=== PATIENT | male | born 1960 | race Caucasian/White ===

== ENCOUNTER 2020-04-11 04:34 | Emergency (ER) | payer SELFPAY ==
[~2020-04-11] VITALS: Ht 170.2 cm; Wt 74.8 kg
[2020-04-11 04:35] VITALS: BP 196/116
[2020-04-11] MEDS ORDERED: KETOROLAC 60 MG/2 ML VIAL. IM ONE (05:00)
[2020-04-11] MEDS ORDERED: ORPHENADRINE CITRATE 60 MG/2 ML VIAL. IM ONE (05:00)
--- NOTE | 2020-04-11 05:01 | PHYS DOC ---
Past History Past Medical History: Hypertension, Other Additional Past Medical Histor: rheumatoid arthritis Rt hip, back pain Past Surgical History: No Surgical History Smoking: Less than 1pk/day Additional Smoking Information: 1/2 pk Daily Alcohol Use: None Drug Use: None General Adult EDM: Chief Complaint: LOWER EXT PAIN HPI: HPI: Patient is a 59 year old male who presents for evaluation of low back pain and left leg pain. Patient has numbness that starts in the bottom of his foot and extends up to near his knee. Patient denies any recent trauma or fall however in the past 1/2 weeks he did do some heavy lifting with moving. Patient has been taking high-dose ibuprofen at home with minimal improvement of symptoms. Patient denies any foot drop, saddle anesthesia or loss of bowel or bladder control. Patient denies any urinary complaints. Patient has a history of hypertension and rheumatoid arthritis. Review of Systems: Review of Systems: Constitutional: Denies fever or chills Eyes: Denies change in visual acuity HENT: Denies nasal congestion or sore throat Respiratory: Denies cough or shortness of breath Cardiovascular: Denies chest pain or edema GI: Denies abdominal pain, nausea, vomiting, bloody stools or diarrhea : Denies dysuria Musculoskeletal: has back pain no joint pain Integument: Denies rash Neurologic: Denies headache, focal weakness or sensory changes Endocrine: Denies polyuria or polydipsia Lymphatic: Denies swollen glands Psychiatric: Denies depression or anxiety Heart Score: Risk Factors: Risk Factors: DM, Current or recent (<one month) smoker, HTN, HLP, family history of CAD, obesity. Risk Scores: Score 0 - 3: 2.5% MACE over next 6 weeks - Discharge Home Score 4 - 6: 20.3% MACE over next 6 weeks - Admit for Clinical Observation Score 7 - 10: 72.7% MACE over next 6 weeks - Early Invasive Strategies Physical Exam: PE: Constitutional: Well developed, well nourished, mild acute distress, non-toxic appearance. [] HENT: Normocephalic, atraumatic, bilateral external ears normal, oropharynx moist, no oral exudates, nose normal. [] Eyes: PERRL, EOMI, conjunctiva normal, no discharge. [] Neck: Normal range of motion, no tenderness, supple, no stridor. [] Cardiovascular:Heart rate regular rhythm, no murmur [] Lungs & Thorax: Bilateral breath sounds clear to auscultation [] Abdomen: Bowel sounds normal, soft, no tenderness, no masses, no pulsatile masses. [] Skin: Warm, dry, no erythema, no rash. [] Back: tender left side lower back. [] Extremities: No tenderness, no cyanosis, no clubbing, ROM intact, no edema. [] Neurologic: Alert and oriented X 3, normal motor function, diminished sensation to bottom of left foot, no focal deficits noted. [] Psychologic: Affect normal, judgement normal, mood normal. [] Current Patient Data: Vital Signs: Vital Signs Date Time Temp Pulse Resp B/P (MAP) Pulse Ox O2 Delivery O2 Flow Rate FiO2 04/11/20 04:35 97.6 82 16 196/116 (142 98 Room Air EKG: EKG: [] Radiology/Procedures: Radiology/Procedures: [address] [address] IMAGING REPORT Signed PATIENT: RESHMA SIMPSON ACCOUNT: [id number] : 1960 LOCATION: ER AGE: 59 SEX: M EXAM STATUS: REG ER ORD. PHYSICIAN: JONNY CAROLINA DO REASON: low back pain, left leg sciatica, X 1.5 WEEKS, NKI PROCEDURE: CT LUMBAR SPINE WO CONTRAST INDICATION: Reason: low back pain, left leg sciatica, X 1.5 WEEKS, NKI / Spl. Instructions: / History: COMPARISON: None. TECHNIQUE: Axial CT images obtained through the lumbar spine. One or more of the following individualized dose reduction techniques were utilized for this examination: 1. Automated exposure control; 2. Adjustment of the mA and/or kV according to patient size; 3. Use of iterative reconstruction technique. FINDINGS: Mild retrolisthesis of L1 on 2 and L2 on 3. Grade 1 anterolisthesis of L4 on 5 and L5 on S1. 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 There is some lucent foci at the L4 and L5 vertebral bodies adjacent to the endplate. Could be from subchondral cyst formation associated with degenerative changes. No evidence of acute fracture or dislocation. Calcific atherosclerosis. Exophytic low-density lesion at the upper pole the left kidney measuring up to 13 mm. There is also a suspected exophytic lesion on the right which appears lower density measuring up to approximately 15 mm. Multilevel degenerative changes throughout the lumbar spine with disc protrusions and osteophyte formation at vertebral body endplates as well as facet and ligamentum flavum hypertrophy contributing to multilevel central canal and neural foraminal stenosis. At T11-12 there is osteophyte formation at the vertebral body endplates with mass effect on the anterior aspect of the thecal sac most severe on the right. There is also facet hypertrophy contributing to [id number] left and mild right neural foraminal stenosis. At T12-L1 there is a disc osteophyte complex with mild mass effect on the anterior aspect of the thecal sac. Facet hypertrophy. [id number] left greater than right neural foraminal stenosis. At L1-2 there is a disc osteophyte complex as well as facet ligamentum flavum hypertrophy with mild trefoil narrowing of the central canal. Mass effect on the bilateral lateral recess. The disc protrusions and facet hypertrophy encroach on the bilateral neural foramina with moderate bilateral neural foraminal stenosis. At L2-3 there is disc osteophyte complex as well as facet and ligamentum flavum hypertrophy with associated moderate trefoil narrowing of the central canal. Mass effect on the lateral recess. Moderate left and ivhd-qq-[id number] right neural foraminal stenosis. At L3-4 there is a disc protrusion and osteophyte formation as well as facet and ligamentum flavum hypertrophy with moderate trefoil narrowing of the central canal and mass effect on the bilateral lateral recess. Moderate bilateral neural foraminal stenosis. At L4-5 there is a disc protrusion and osteophyte formation of vertebral body endplates with facet and ligamentum flavum hypertrophy with mild to moderate central canal stenosis and a trefoil pattern. Lateral recesses are effaced. Moderate bilateral neural foraminal stenosis. At L5-S1 there is severe facet hypertrophy with disc protrusion and osteophyte formation at the vertebral body endplates with moderate trefoil narrowing of the central canal and mass effect on the bilateral lateral recess. Bilateral severe neural foraminal stenosis IMPRESSION: * No acute fracture or dislocation. * Multilevel degenerative changes throughout the lumbar spine with disc protrusions and osteophyte formation as well as facet and ligamentum flavum hypertrophy with multilevel central canal and neural foraminal stenosis as detailed above. 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 * Severe calcific atherosclerosis. * Bilateral renal lesions. Consider obtaining a nonemergent ultrasound to further assess whether or cystic in nature or have a solid component. Electronically signed by: Slava Miramontes MD (04/11/2020 5:55 AM) [id number] Course & Med Decision Making: Course & Med Decision Making Pertinent Labs and Imaging studies reviewed. (See chart for details) 0502 patient change his mind and decided he did not want injections. Medication changed to oral Flexeril and Naprosyn Dragon Disclaimer: Dragon Disclaimer: This electronic medical record was generated, in whole or in part, using a voice recognition dictation system. 0605 significant degenerative changes and arthritic changes noted to back. There is some disc bulging. Furthermore patient has some renal cyst that will n eed close follow-up and possible ultrasound as well. Patient was made aware of all of these findings. Patient will call and see his family doctor right away. Prescription for Flexeril given. Work note for 2 days off given as well Departure Departure: Impression: Primary Impression: Left-sided low back pain with left-sided sciatica Qualified Codes: M54.42 - Lumbago with sciatica, left side Additional Impression: Renal cyst Disposition: HOME/RESIDENCE PRIOR TO ADM Condition: STABLE Referrals: PCP,SOLE (PCP) MARLIN BRIZUELA MD Patient Instructions: Back Pain, Adult, Sciatica Additional Instructions: There are multiple positive findings on your back CT scan. You will need to see your doctor right away and follow-up. You would likely need physical therapy and if symptoms worsen or progress possible back surgery. Do not forget to see your doctor about your incidental finding of renal cyst that will need an outpatient sonogram as well Scripts Cyclobenzaprine Hcl (CYCLOBENZAPRINE HCL) 10 Mg Tablet 1 TAB PO TID for muscle strain, #30 TAB Prov: JONNY CAROLINA DO 04/11/20 Justification of Admission: Justification of Admission: Justification of Admission Dx: N/A JONNY CAROLINA DO Apr 11, 2020 05:01
[2020-04-11] MEDS ORDERED: CYCLOBENZAPRINE 10 MG TABLET. PO ONE (05:15)
[2020-04-11] MEDS ORDERED: NAPROXEN 500 MG TABLET PO ONE (05:15)
--- NOTE | 2020-04-11 05:58 | RAD ---
INDICATION: Reason: low back pain, left leg sciatica, X 1.5 WEEKS, NKI / Spl. Instructions: / History: COMPARISON: None. TECHNIQUE: Axial CT images obtained through the lumbar spine. One or more of the following individualized dose reduction techniques were utilized for this examination: 1. Automated exposure control; 2. Adjustment of the mA and/or kV according to patient size; 3. Use of iterative reconstruction technique. FINDINGS: Mild retrolisthesis of L1 on 2 and L2 on 3. Grade 1 anterolisthesis of L4 on 5 and L5 on S1. 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 There is some lucent foci at the L4 and L5 vertebral bodies adjacent to the endplate. Could be from subchondral cyst formation associated with degenerative changes. No evidence of acute fracture or dislocation. Calcific atherosclerosis. Exophytic low-density lesion at the upper pole the left kidney measuring up to 13 mm. There is also a suspected exophytic lesion on the right which appears lower density measuring up to approximately 15 mm. Multilevel degenerative changes throughout the lumbar spine with disc protrusions and osteophyte formation at vertebral body endplates as well as facet and ligamentum flavum hypertrophy contributing to multilevel central canal and neural foraminal stenosis. At T11-12 there is osteophyte formation at the vertebral body endplates with mass effect on the anterior aspect of the thecal sac most severe on the right. There is also facet hypertrophy contributing to [id number] left and mild right neural foraminal stenosis. At T12-L1 there is a disc osteophyte complex with mild mass effect on the anterior aspect of the thecal sac. Facet hypertrophy. Qpje-zw-mfhjaigj left greater than right neural foraminal stenosis. At L1-2 there is a disc osteophyte complex as well as facet ligamentum flavum hypertrophy with mild trefoil narrowing of the central canal. Mass effect on the bilateral lateral recess. The disc protrusions and facet hypertrophy encroach on the bilateral neural foramina with moderate bilateral neural foraminal stenosis. At L2-3 there is disc osteophyte complex as well as facet and ligamentum flavum hypertrophy with associated moderate trefoil narrowing of the central canal. Mass effect on the lateral recess. Moderate left and yooq-xr-vpqoatra right neural foraminal stenosis. At L3-4 there is a disc protrusion and osteophyte formation as well as facet and ligamentum flavum hypertrophy with moderate trefoil narrowing of the central canal and mass effect on the bilateral lateral recess. Moderate bilateral neural foraminal stenosis. At L4-5 there is a disc protrusion and osteophyte formation of vertebral body endplates with facet and ligamentum flavum hypertrophy with mild to moderate central canal stenosis and a trefoil pattern. Lateral recesses are effaced. Moderate bilateral neural foraminal stenosis. At L5-S1 there is severe facet hypertrophy with disc protrusion and osteophyte formation at the vertebral body endplates with moderate trefoil narrowing of the central canal and mass effect on the bilateral lateral recess. Bilateral severe neural foraminal stenosis IMPRESSION: * No acute fracture or dislocation. * Multilevel degenerative changes throughout the lumbar spine with disc protrusions and osteophyte formation as well as facet and ligamentum flavum hypertrophy with multilevel central canal and neural foraminal stenosis as detailed above. 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 * Severe calcific atherosclerosis. * Bilateral renal lesions. Consider obtaining a nonemergent ultrasound to further assess whether or cystic in nature or have a solid component. Electronically signed by: Slava Miramontes MD (04/11/2020 5:55 AM) [id number]
[2020-04-11] MEDS ORDERED: CYCL-331 PO (06:11)
[2020-04-12] MEDS ORDERED: PRED20TA PO (14:36)
[2020-04-12] MEDS ORDERED: ACET-704 PO (14:36)
== END 2020-04-11 06:15 | disposition home or self-care (01) ==
LOC: ER 04:34
DX: M54.42 Lumbago with sciatica, left side (principal); N28.1 Cyst of kidney, acquired; I10 Essential (primary) hypertension; M06.9 Rheumatoid arthritis, unspecified; F17.210 Nicotine dependence, cigarettes, uncomplicated
CPT/HCPCS: 72131; 99284-25

== ENCOUNTER 2020-04-12 14:17 | Emergency (ER) | payer SELFPAY ==
[~2020-04-12] VITALS: Ht 170.2 cm; Wt 74.8 kg
[2020-04-12 14:17] VITALS: BP 144/108
[~2020-04-12 14:17] MED LIST: CYCL-331 PO
[2020-04-12] MEDS ORDERED: ACET-704 PO (14:36)
[2020-04-12] MEDS ORDERED: PRED20TA PO (14:36)
--- NOTE | 2020-04-12 14:36 | PHYS DOC ---
Past History Past Medical History: Hypertension, Other Additional Past Medical Histor: rheumatoid arthritis Rt hip, back pain Past Surgical History: No Surgical History Smoking: Less than 1pk/day Alcohol Use: None Drug Use: None General Adult EDM: Chief Complaint: BACK PAIN OR INJURY HPI: HPI: Patient is a 59-year-old male who presents to the emergency department for evaluation, he has had 2 weeks of lower back pain, radiating down his left buttock and hip, towards his left foot. He states he is having some numbness on the medial aspect of his left foot. He denies any foot drop, gait instability other than due to pain, incontinence, or saddle anesthesia. He was seen in the emergency department yesterday morning, and had a CT scan which has been reviewed. It did demonstrate degenerative disc disease. The patient states he recently moved to this area and has not been able to arrange any follow-up as of yet. Ambulation and movement worsens his pain. There are no alleviating factors to his symptoms. He filled the Flexeril that he was given yesterday without improvement in his symptoms. The patient states he has a history of hypertension, but has not been taking his blood pressure medication. Review of Systems: Review of Systems: Constitutional: Denies fever or chills HENT: Denies nasal congestion or sore throat Respiratory: Denies cough or shortness of breath Cardiovascular: Denies chest pain or edema GI: Denies abdominal pain, nausea, vomiting, bloody stools or diarrhea : Denies dysuria Musculoskeletal: Denies upper back pain or joint pain Integument: Denies rash Neurologic: Denies headache, focal weakness or sensory changes, other than as noted in the HPI involving the left foot Endocrine: Denies polyuria or polydipsia Psychiatric: Denies depression or anxiety Heart Score: Risk Factors: Risk Factors: DM, Current or recent (<one month) smoker, HTN, HLP, family history of CAD, obesity. Risk Scores: Score 0 - 3: 2.5% MACE over next 6 weeks - Discharge Home Score 4 - 6: 20.3% MACE over next 6 weeks - Admit for Clinical Observation Score 7 - 10: 72.7% MACE over next 6 weeks - Early Invasive Strategies Allergies: Allergies: Allergies Coded Allergies Type Severity Reaction Last Updated Verified No Known Allergies Allergy Unknown 04/11/20 Yes Physical Exam: PE: PHYSICAL EXAM: CONSTITUTIONAL: Well developed, well nourished HEAD: normocephalic, atraumatic EENT: PERRL, EOMI. Conjunctivae normal color, sclerae non-icteric; moist mucous membranes. NECK: Supple, non-tender; no meningismus. LUNGS: Lungs CTA, breathing even and unlabored. Normal air movement. HEART: Regular rate and rhythm, no murmur CHEST: No deformity; non-tender ABDOMEN: The abdomen is soft, and non-tender, no masses or bruits. EXTREM: Normal ROM; no deformity, no calf tenderness. Normal pulses palpable in all extremities. There is no pedal edema. SKIN: No rash; no diaphoresis NEURO: Alert; normal speech and cognition; CN's grossly intact; strength grossly intact without focal deficit. Patellar reflexes are 2+ bilaterally. There is no gross sensory deficit. There is no saddle anesthesia. There is no foot drop. BACK: No CVA TTP. There is mild tenderness to palpation diffusely to the lower lumbar spine. EKG: EKG: [] Radiology/Procedures: Radiology/Procedures: [] Course & Med Decision Making: Course & Med Decision Making Pertinent Imaging studies reviewed. (See chart for details) [] 2:35 PM: The patient's condition remains stable. I did discuss the importance of close outpatient follow-up with neurosurgery for further definitive treatment of his back pain. Will add a short course of Tylenol 3 as well as a prednisone course. Return precautions were discussed in detail. Sheba Disclaimer: Sheba Disclaimer: This electronic medical record was generated, in whole or in part, using a voice recognition dictation system. Departure Departure: Impression: Primary Impression: Low back pain Disposition: 01 HOME/RESIDENCE PRIOR TO ADM Condition: STABLE Patient Instructions: Back Pain, Adult, Lumbosacral Radiculopathy Additional Instructions: Follow-up with neurosurgery, Dr. Balderas, at [facility]. Please call [phone] to schedule a follow-up appointment. Return to medical care for any new or worsening symptoms, development of weakness in your legs, fever, new or worsening pain, or any other concerning symptoms. Continue taking the previously prescribed medications. Applying a heating pad to the affected area may help improve your symptoms. The prescribed medications may cause drowsiness-use caution while taking. Scripts Acetaminophen With Codeine (TYLENOL WITH CODEINE #3 TABLET) 1 Each Tablet 1 TAB PO PRN Q6HRS PRN for pain MDD 4 Tablet(s), #15 TAB 0 Refills Prov: PATRICIA WARREN MD 04/12/20 Prednisone (PREDNISONE) 20 Mg Tablet 40 MG PO DAILY for - for 5 Days, #10 TAB Prov: PATRICIA WARREN MD 04/12/20 Justification of Admission: Justification of Admission: Justification of Admission Dx: N/A PATRICIA WARREN MD Apr 12, 2020 14:36
== END 2020-04-12 14:47 | disposition home or self-care (01) ==
LOC: ER 14:17
DX: M54.5 Low back pain (principal); R20.0 Anesthesia of skin; I10 Essential (primary) hypertension; M06.9 Rheumatoid arthritis, unspecified; F17.200 Nicotine dependence, unspecified, uncomplicated
CPT/HCPCS: 99283

== ENCOUNTER 2022-01-29 11:36 | Emergency (ER) | payer SELFPAY ==
[~2022-01-29] VITALS: Ht 170.2 cm; Wt 73.0 kg
[~2022-01-29 11:36] MED LIST changes: +ACET-704 PO; -CYCL-331 PO; +CYCL10TA19 PO; +PRED20TA PO
[2022-01-29 11:45] VITALS: BP 203/96
[2022-01-29] MEDS ORDERED: KETOROLAC 60 MG/2 ML VIAL. IM ONE (12:00)
[2022-01-29] MEDS ORDERED: ORPHENADRINE CITRATE 60 MG/2 ML VIAL. IM ONE (12:00)
--- NOTE | 2022-01-29 12:03 | PHYS DOC ---
Past History Past Medical History: No Pertinent History, Hypertension, Other Additional Past Medical Histor: rheumatoid arthritis Rt hip, back pain Past Surgical History: No Surgical History Smoking: Less than 1pk/day Alcohol Use: None Drug Use: None General Adult EDM: Chief Complaint: HIP PAIN HPI: HPI: Patient is a 61-year-old male who presents to the emergency department for right hip pain that radiates down his leg that started 2 years ago. Patient denies any new injuries or falls. He reports that he has a history of chronic back fredi n and chronic right hip pain due to arthritic changes. Patient had a lumbar spine CT 2 years ago and it did show degenerative changes. Patient reports that he has been able to bear weight and ambulate but has increased pain with moving his right hip. He rates his pain 8 out of 10. He reports that the pain is intermittent. He states that he "feels stiff". Patient did not have any treatment prior to arrival for his pain. He denies any urinary symptoms, loss of bowel or bladder, saddle anesthesias. Review of Systems: Review of Systems: GI: See HPI : See HPI Musculoskeletal: See HPI Neurologic: See HPI Allergies: Allergies: Allergies Coded Allergies Type Severity Reaction Last Updated Verified No Known Allergies Allergy Unknown 04/11/20 Yes Physical Exam: PE: Constitutional: Well developed, well nourished, no acute distress, non-toxic appearance. [] HENT: Normocephalic, atraumatic, bilateral external ears normal, oropharynx moist, no oral exudates, nose normal. [] Eyes: PERRL, EOMI, conjunctiva normal, no discharge. [] Neck: Normal range of motion, no bony spinal tenderness, no step-offs or deformities, supple, no stridor. [] Cardiovascular:Heart rate regular rhythm, no murmur [] Lungs & Thorax: Bilateral breath sounds clear to auscultation [] Abdomen: Bowel sounds normal, soft, no tenderness, no masses, no pulsatile masses. [] Skin: Warm, dry, no erythema, no rash. [] Back: No bony spinal tenderness, normal range of motion Extremities: No tenderness, no cyanosis, no clubbing, ROM intact, no edema. [] Right hip: Anterior right hip pain, no shortening or rotation, patient able to bear weight and ambulate, positive right straight leg raise, range of motion intact, neuro intact Neurologic: Alert and oriented X 3, normal motor function, normal sensory function, no focal deficits noted. [] Psychologic: Affect normal, judgement normal, mood normal. [] Current Patient Data: Vital Signs: Vital Signs Date Time Temp Pulse Resp B/P (MAP) Pulse Ox O2 Delivery O2 Flow Rate FiO2 01/29/22 11:45 98.0 87 16 203/96 (131) 97 Room Air EKG: EKG: [] Radiology/Procedures: Radiology/Procedures: []PROCEDURE: HIP RIGHT 2V WITH PELVIS EXAM: XR RIGHT HIP (WITH OR WITHOUT PELVIS) 2 VIEWS 01/29/2022 12:15 PM CLINICAL INDICATION: Right hip pain COMPARISON: None TECHNIQUE: AP view of the pelvis. AP view of the right and left hip. FINDINGS: No acute fracture. Alignment is normal. There is severe bilateral hip joint space narrowing with subchondral cysts and sclerosis, and large femoral and acetabular osteophytes. The pubic symphysis and sacroiliac joints are maintained. There is lower lumbar degenerative disc disease. 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 Electronically signed by: Loly Bertrand MD (01/29/2022 12:55 PM) [id number] DICTATED AND SIGNED BY: LOLY BERTRAND MD DATE: 01/29/22 1253 CC: JONNY GUILLEN APRN; PCP,NO ~ Heart Score: C/O Chest Pain: N/A Risk Factors: Risk Factors: DM, Current or recent (<one month) smoker, HTN, HLP, family history of CAD, obesity. Risk Scores: Score 0 - 3: 2.5% MACE over next 6 weeks - Discharge Home Score 4 - 6: 20.3% MACE over next 6 weeks - Admit for Clinical Observation Score 7 - 10: 72.7% MACE over next 6 weeks - Early Invasive Strategies Course & Med Decision Making: Course & Med Decision Making Pertinent Labs and Imaging studies reviewed. (See chart for details) [] Patient presents to the emergency department for right hip pain that radiates down his leg that started 2 years ago. Patient denies any injuries. Patient does have a history of chronic right hip and chronic back pain. He had a CT scan of his lumbar spine 2 years ago which showed degenerative changes. Patient denies any new injuries since then. Imaging was performed to screen pelvis which showed degenerative changes. He is neurovascularly intact. Patient treated with anti-inflammatory and muscle relaxer injections. Patient will be discharged home with pain medication. He is advised to rest and take anti- inflammatory medications at home. He was given referral information for orthopedic doctor. I discussed with patient all findings and diagnostic testing as well as the need to follow-up with PCP for further evaluation and treatment or return to the ER if any new or worsening symptoms. Strict return precautions were also discussed at length. Patient voiced understanding and agreement with the plan. Patient is hemodynamically stable at the time of disposition. Dragon Disclaimer: Dragon Disclaimer: This electronic medical record was generated, in whole or in part, using a voice recognition dictation system. Departure Departure: Impression: Primary Impression: Hip pain Disposition: HOME / SELF CARE / HOMELESS Condition: GOOD Referrals: PCP,SOLE (PCP) ANA OLIVO II, MD Patient Instructions: Hip Pain Additional Instructions: You are seen in the emergency department today for right hip pain. Imaging showed degenerative changes. You are being discharged home with pain medication. This medication has Tylenol and hydrocodone and a combination tablet. Do not take any additional Tylenol with this medication. This medication may cause sedation so do not take need to be alert, driving a vehicle or with alcohol. You can also take ibuprofen or naproxen. I am giving you referral information for an orthopedic doctor. If your pain continues will need to follow-up with an orthopedic doctor. I would advise you to follow-up with your primary care provider within a week. Return to the emergency department if you develop worsening of your pain, any new injuries, loss of bowel or bladder, numbness or tingling in your groin or down your leg, decreased range of motion or decreased sensation in your extremity, inability to bear weight or walk or any new or worsening concerns. Scripts Hydrocodone Bit/Acetaminophen (HYDROCODONE-APAP 5-325 ) 1 Each Tablet 1 TAB PO PRN Q6HRS PRN for PAIN for 2 Days, #8 TAB 0 Refills Prov: JONNY GUILLEN APRN 01/29/22 JONNY GUILLEN APRN Jan 29, 2022 12:03
--- NOTE | 2022-01-29 12:57 | RAD ---
EXAM: XR RIGHT HIP (WITH OR WITHOUT PELVIS) 2 VIEWS 01/29/2022 12:15 PM CLINICAL INDICATION: Right hip pain COMPARISON: None TECHNIQUE: AP view of the pelvis. AP view of the right and left hip. FINDINGS: No acute fracture. Alignment is normal. There is severe bilateral hip joint space narrowin g with subchondral cysts and sclerosis, and large femoral and acetabular osteophytes. The pubic symph ysis and sacroiliac joints are maintained. There is lower lumbar degenerative disc disease. 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 Electronically signed by: Loly Bertrand MD (01/29/2022 12:55 PM) [id number]
[2022-01-29] MEDS ORDERED: HYDROcodone/APAP 5/325MG 1 TAB TABLET PO ONE (13:15)
[2022-01-29] MEDS ORDERED: HYDR-2155 PO (13:25)
== END 2022-01-29 13:38 | disposition home or self-care (01) ==
LOC: ER 11:36
DX: M25.551 Pain in right hip (principal); G89.29 Other chronic pain; I10 Essential (primary) hypertension; M06.9 Rheumatoid arthritis, unspecified
CPT/HCPCS: 73502; 96372; 99284; J1885; J2360